=== PATIENT | female | born 1980 | race Hispanic/Latino ===

== ENCOUNTER 2018-12-01 11:00 | Outpatient (AMBR) | payer SELFPAY ==
--- NOTE | 2018-11-09 13:53 | PT.ODAYNRPT ---
PT Outpatient Daily Note Date of Service: November 09, 2018 OP Daily Note Visit Reasons: hip pain Outpatient Physical Therapy Treatment Date: 11/09/18 Subjective: Same as time of evaluation Objective: See F/S for therex Mechanical traction x12' L/S at 20 lbs Assessment: Mod/Severe tissue irritability limits transitional movements and trunk ROM with ADL's. Plan: Continue per POC Length of Time (minutes) of Treatment: 30 Minutes Office Procedures PT Procedures PT Date of Service: 11/09/18 Traction Mechanical: Yes Therapeutic Exercise 15 minutes: Yes
--- NOTE | 2018-11-16 14:02 | PT.ODAYNRPT ---
PT Outpatient Daily Note Date of Service: November 16, 2018 OP Daily Note Visit Reasons: hip pain Outpatient Physical Therapy Treatment Date: 11/16/18 Subjective: Temporary relief after therapy visit last time Objective: See F/S for therex Mechanical traction x12' L/S at 20 lbs Assessment: Mod/Severe tissue irritability limits transitional movements and trunk ROM with ADL's consistent with discogenic pain. Plan: Continue per POC Length of Time (minutes) of Treatment: 30 Minutes Office Procedures PT Procedures PT Date of Service: 11/09/18 Traction Mechanical: Yes Therapeutic Exercise 15 minutes: Yes PT Procedures PT Date of Service: 11/16/18 Traction Mechanical: Yes Therapeutic Exercise 15 minutes: Yes
--- NOTE | 2018-11-23 18:11 | PT.ODAYNRPT ---
PT Outpatient Daily Note Date of Service: November 23, 2018 OP Daily Note Visit Reasons: hip pain Outpatient Physical Therapy Treatment Date: 11/23/18 Subjective: I would rather than feel this pain. She doesn't notice any difference after lumbar traction. Objective: See F/S for therex MT: manual sacral distraction and STM L/S parspinals L5-S1 x10' Assessment: Severe tissue irritability limits transitional movements and trunk ROM with ADL's consistent with discogenic pain and L>R radiculopathy. Pt would benefit from neurology referral. Plan: Continue per POC Length of Time (minutes) of Treatment: 30 Minutes Office Procedures PT Procedures PT Date of Service: 11/09/18 Traction Mechanical: Yes Therapeutic Exercise 15 minutes: Yes PT Procedures PT Date of Service: 11/16/18 Traction Mechanical: Yes Therapeutic Exercise 15 minutes: Yes PT Procedures PT Date of Service: 11/23/18 Therapeutic Exercise 15 minutes: Yes Manual Inventory Control Specialist 15 minutes: Yes
--- NOTE | 2018-12-01 11:42 | PT.ODS1RPT ---
PT OP Progress/Discharge Note Date of Service: December 01, 2018 Progress Note/DC Note Progress Note/Discharge Note: DC Note Patient Information Visit Reasons: hip pain Service Continue Service or Discharge: Discharge Discharge Date: 12/01/18 Status Subjective: I would rather than feel this pain. She doesn't notice any difference after therapy visits, very temporary relief. Objective: Same as time of evaluation, see eval for objective findings MT: manual sacral distraction and STM L/S parspinals L5-S1 x10' Assessment: Pt has attended 4/7 Rx visits and made limited progress with conservative Rx due to severe tissue irritability that limits transitional movements and trunk ROM with ADL's consistent with discogenic pain and L>R radiculopathy. Objective findings unchanged from evaluation. Pt would benefit from neurology/orthopedic referral and further diagnostic imaging of L/S. Plan: Pt is discharged back to provider for further workup. Office Procedures PT Procedures PT Date of Service: 11/09/18 Traction Mechanical: Yes Therapeutic Exercise 15 minutes: Yes PT Procedures PT Date of Service: 11/16/18 Traction Mechanical: Yes Therapeutic Exercise 15 minutes: Yes PT Procedures PT Date of Service: 11/23/18 Therapeutic Exercise 15 minutes: Yes Manual Staff Design Engineer 15 minutes: Yes PT Procedures PT Date of Service: 12/01/18 Therapeutic Exercise 30 minutes: Yes
== END 2018-12-06 23:59 | disposition home or self-care (01) ==
PROVIDERS: Visit Provider Internal Medicine
DX: M54.5 Low back pain (principal); M25.552 Pain in left hip
CPT/HCPCS: 97012; 97110; 97140